=== PATIENT | male | born 1985 | race Caucasian/White ===

== ENCOUNTER 2016-11-28 18:56 | Emergency (ER) | payer OTHER ==
[~2016-11-28 18:56] MED LIST: CIPRO PO; CIPRO XR 500 M500 MG PO; HYDROCODON-ACE1 EAC9 PO; HYDROCODONE-APA1 T55 PO; IBUPROFEN800 MG PO; LORTAB 5/500 TA1 TA1 PO; NORCO 5/325 TAB1 TAB PO; PREDNISONE PO; PYRIDIUM PO; ULTRAM PO
== END 2016-11-28 20:16 | disposition home or self-care (01) ==
LOC: CED 18:56
DX: R11.2 Nausea with vomiting, unspecified (principal); R19.7 Diarrhea, unspecified; J45.909 Unspecified asthma, uncomplicated; F17.210 Nicotine dependence, cigarettes, uncomplicated; Z98.890 Other specified postprocedural states
CPT/HCPCS: 99283

== ENCOUNTER 2016-12-02 10:30 | Emergency (ER) | payer OTHER ==
--- NOTE | ~2016-12-02 | CT4 ---
[facility] A Service of [facility] RADIOLOGY TEXT RESULTS PATIENT: RALPH CHOUDHURY LOCATION: [facility] : 85 UNIT #: [id number] AGE: [address]: Ramila Brown SEX: M ORDER DR: [id number] [address] [address] [id number] E MR#: [id number] Acc #: [id number] NAME: RALPH CHOUDHURY. : 1985 SEX: M STUDY DATE/TIME: 12/02/2016 10:58 UNIT: [facility] ROOM: STUDY DESCRIPTION: CT Abd and Pelv Wo Cont Attending Physician: Ramila Brown Pa-C Ordering Physician: Ramila Brown Pa-C Primary Care Physician: Primary Care Physician No MEDICAL IMAGING REPORT This report is preliminary unless electronic signature is present EXAM CT abdomen and pelvis without contrast INDICATION Left testicular pain today. PROCEDURE Unenhanced CT of the abdomen and pelvis. COMPARISON Scrotal ultrasound performed on the same day. Abdomen and pelvis CT from 10/03/2016. TECHNIQUE This CT examination was performed with one or more of the following radiation dose reduction techniques: automatic exposure control, adjustment of mA and/or kV according to patient size, and iterative reconstruction. FINDINGS ABDOMEN WITHOUT CONTRAST: Included lung bases are clear. The liver, spleen, kidneys, adrenal glands, pancreas, gallbladder are unremarkable. Bowel loops are nondilated. Appendix is normal. PELVIS WITHOUT CONTRAST: No pelvic mass or fluid. Small bilateral hydroceles. There is no radiodense urinary system calculus or hydronephrosis. No aggressive appearing bone lesion. IMPRESSION 1. No acute findings. 2. Small bilateral hydroceles. Refer to the scrotal ultrasound for further details. [facility] A Service [facility] RADIOLOGY TEXT RESULTS PATIENT: RALPH CHOUDHURY LOCATION: [facility] : 85 UNIT #: [id number] AGE: [address]: Ramila Brown SEX: M ORDER DR: Dictated by... Jhoan Trejo M.D. THIS IS AN ELECTRONICALLY VERIFIED REPORT Jhoan Trejo M.D. at 12/03/2016 7:05 AM WYATT/lauren TD: 12/02/2016 13:58 JOB #: [id number] MEDICAL IMAGING REPORT Page 1 of 1 COPY
--- NOTE | ~2016-12-02 | US115 ---
[facility] A Service of [facility] RADIOLOGY TEXT RESULTS PATIENT: RALPH CHOUDHURY LOCATION: [facility] : 85 UNIT #: [id number] AGE: [address]: Ramila Brown SEX: M ORDER DR: [id number] [facility] [address] [place], [place] [address] [id number] E MR#: [id number] Acc #: [id number] NAME: RALPH CHOUDHURY. : 1985 SEX: M STUDY DATE/TIME: 12/02/2016 8:59 UNIT: [facility] ROOM: STUDY DESCRIPTION: US Scrotum and Contents Attending Physician: Ramila Brown Pa-C Ordering Physician: Ramila Brown Pa-C Primary Care Physician: No Primary Care Physician MEDICAL IMAGING REPORT This report is preliminary unless electronic signature is present EXAM Scrotal ultrasound 12/02/2016 HISTORY Pain. Pain and swelling left testis since 10:00 p.m. last night. FINDINGS Real-time ultrasonography of the scrotal contents performed. Santo-scale color Doppler Doppler pulse-wave interrogation utilized. Comparison 07/27/2015. The right testis measures 3.17 cm x 4.18 cm x 1.82 cm. It is normal in size, contour and echotexture. Arterial and venous flow present in the right testis. Small right hydrocele. Similar or slightly larger than on prior examination. The right epididymis contains an epididymal head cyst measuring 0.24 cm x 0.27 cm x 0.24 cm. There is an internal septation and some internal debris. This appears to have been present on prior examination. It is decreased in size compared to the prior study. The right epididymis shows no evidence of inflammatory change. The left testis measures 3.54 cm x 4.23 cm x 1.51 cm. It is normal in contour and echotexture. Arterial and venous flow are present. There is a small left hydrocele. Smaller than on right. The left epididymis is unremarkable. There is a left varicocele on the medial aspect of the hemiscrotum. Similar appearance on prior examination. IMPRESSION 1. The bilateral testes are normal in size, contour and echotexture. There is no indication of testicular mass lesion or inflammatory change. Arterial and venous flow noted at bilateral testes. 2. The bilateral epididymis show no acute abnormality. There is a small slightly complicated cyst in the right epididymal head. Present in 2014. It appears slightly smaller on today's examination. 3. Small bilateral hydroceles, right greater than left. 4. Left-sided varicocele. This was also present in 2015. [facility] A Service of [facility] RADIOLOGY TEXT RESULTS PATIENT: RALPH CHOUDHURY LOCATION: [facility] : 85 UNIT #: [id number] AGE: [address]: Ramila Brown SEX: M ORDER DR: Dictated by... Jose Miguel Walsh M.D. THIS IS AN ELECTRONICALLY VERIFIED REPORT Jose Miguel Walsh M.D. at 12/03/2016 5:13 PM VANDANA/gloria TD: 12/02/2016 12:43 JOB #: [id number] MEDICAL IMAGING REPORT Page 1 of 1 COPY
[2016-12-02 08:55] LABS: BASOPHIL# 0.1 X10e3 (0-0.3); BASOPHIL% 0.6 % (0-2.5); EOSINOPHIL# 0.6 X10e3 (0-0.7); EOSINOPHIL% 5.2 % (0.0-7.0); HEMATOCRIT 47.1 % (38.0-50.0); HEMOGLOBIN 15.4 gm/dL (13.0-16.0); LYMPHOCYTE# 2.1 X10e3 (1.0-3.5); LYMPHOCYTE% 17.5 % (17.0-45.0); MEAN CELL VOLUME 92.8 FL (83-96); MEAN CORPUSCULAR HEMOGLOBIN 30.4 PG (28-34); MEAN CORPUSCULAR HGB CONC 32.8 g/dL (30-36); MEAN PLATELET VOLUME 8.5 FL (6.5-11.5); MONOCYTE% 8.7 % (3.0-12.0); PLATELET COUNT 262 X10e3 (140-420); RED BLOOD COUNT 5.07 X10e (3.90-5.60); RED CELL DISTRIBUTION WIDTH 12.2 % (11.0-15.5); WHITE BLOOD COUNT 11.8 X10e3 (4.0-10.5)
[2016-12-02 08:58] LABS: DIFF IND NO
[2016-12-02 09:26] LABS: CALCIUM SERUM 8.8 mg/dL (8.4-10.2); GLOM FILT RATE Estimated 99.9 mL/min (>60); POTASSIUM 3.5 mmol/L (3.5-5.1)
[2016-12-02 10:37] LABS: URINE SOURCE CLEAN CATCH
[2016-12-02 10:45] LABS: URINE APPEARANCE CLEAR; URINE BILIRUBIN NEG (NEG); URINE BLOOD NEG (NEG); URINE COLOR YELLOW; URINE GLUCOSE NEG (NEG); URINE KETONE NEG (NEG); URINE LEUKOCYTE ESTERASE TRACE (NEG); URINE NITRATE NEG (NEG); URINE PH 8.5 (5-8); URINE PROTEIN NEG (NEG); URINE SPECIFIC GRAVITY 1.029 (1.003-1.035)
[2016-12-02 10:47] LABS: URBCS1 AUWI 0-2 /[HPF] (0-2); URINE BACTERIA AUWI NEG (NEGATIVE); URINE SQUAMOUS EPITHELIAL CELL NONE SEEN /[HPF]; UWBCS1 AUWI 0-2 (0-5)
[2016-12-02 11:05] LABS: CULTURE INDICATED? NO
== END 2016-12-02 12:05 | disposition home or self-care (01) ==
LOC: CED 10:30
PROVIDERS: Physician Assistant Medical
DX: N50.812 Left testicular pain (principal); R10.32 Left lower quadrant pain; J45.909 Unspecified asthma, uncomplicated; F17.210 Nicotine dependence, cigarettes, uncomplicated; Z91.040 Latex allergy status; Z88.8 Allergy status to other drugs, medicaments and biological substances
CPT/HCPCS: 36415; 74176; 76870; 80048; 81003; 85025; 93976; 96361; 96374; 96375; 99284; J1885; J2405